=== PATIENT | female | born 1965 | race Caucasian/White ===

== ENCOUNTER 2019-07-05 05:28 | Observation (INO) ==
[2019-07-05 05:52] LABS: Bilirubin,Urine Negative (Negative); Blood,Urine Negative (Negative); Clarity,Urine Clear (Clear); Color,Urine Yellow (Yellow); Glucose,Urine (UA) Normal (Normal); Ketones,Urine Negative (Negative); Leukocyte Esterase,Urine Negative (Negative); Nitrite,Urine Negative (Negative); Protein,Urine Negative (Neg-Trace); Specific Gravity,Urine 1.019 (1.010-1.025); Urobilinogen,Urine Normal (Normal)
[2019-07-05] MEDS ORDERED: Ondansetron 4 MG/2 ML VIAL IVP ONE (06:26)
[2019-07-05] MEDS ORDERED: 0.9 % Sodium Chloride 1,000 ML IVC ONE (06:26)
[2019-07-05] MEDS ORDERED: Hyoscyamine SL 0.125 MG TAB.SUBL SL STA (06:26)
[2019-07-05 07:02] LABS: Basophils # 0.1 K/mcL (0.0-0.2); Basophils % 0.7 %; Eosinophils # 0.1 K/mcL (0.0-0.6); Eosinophils % 0.7 %; Hematocrit 42.2 % (35.3-44.9); Hemoglobin 14.1 g/dL (11.5-15.4); Immature Granulocytes % 0.3 % (0-4); Lymphocytes # 1.7 K/mcL (0.6-4.6); Lymphocytes % 17.5 %; Mean Corpuscular HGB Conc 33.4 g/dL (31.6-35.5); Mean Corpuscular Hemoglobin 29.7 pg (28.0-33.3); Mean Platelet Volume 11.9 fL (9.4-12.4); Monocytes # 0.6 K/mcL (0.0-1.3); Monocytes % 5.6 %; Neutrophils # 7.5 K/mcL (1.6-8.9); Platelet Count 199 K/mcL (140-400); Red Blood Count 4.74 M/mcL (3.82-4.97); Red Cell Distribution Width 12.6 % (11.5-14.5); Segmented Neutrophils % 75.2 %
[2019-07-05 07:22] LABS: Alanine Aminotransferase 58 Units/L (7-52); Albumin 4.4 g/dL (3.5-5.7); Albumin/Globulin Ratio 1.5 (1.1-2.2); Alkaline Phosphatase 74 Units/L (34-104); Aspartate Amino Transferase 38 Units/L (13-39); BUN/Creatinine Ratio 24 (6-26); Bilirubin,Direct 0.2 mg/dL (0.0-0.2); Bilirubin,Indirect 0.6 mg/dL (0.0-1.2); Bilirubin,Total 0.8 mg/dL (0.3-1.0); Blood Urea Nitrogen 17 mg/dL (6-20); Calcium 9.3 mg/dL (8.6-10.3); Carbon Dioxide 28 mEq/L (23-29); Chloride 105 mEq/L (98-107); Globulin 2.9 g/dL (2.4-3.5); Glucose 160 mg/dL (70-105); Lipase 39 Units/L (11-82); Osmolality,Calculated 285 (280-300); Sodium 135 mEq/L (136-145); Total Protein 7.3 g/dL (6.4-8.9); eGFR For African Americans > 60 (> 60); eGFR For Non-African Americans > 60 (> 60)
[2019-07-05] MEDS ORDERED: Piperacillin/Tazobactam 3.375 GM in 0.9 % Sodium Chloride Mini Bag 100 ML IVPB ONE ×2 (08:11→16:51)
[2019-07-05] MEDS ORDERED: 0.9 % Sodium Chloride 1,000 ML IVC SCH (08:15)
[2019-07-05] MEDS ORDERED: Bupivacaine/EPI 1:200k 0.5%PF 30 ML VIAL ONE (15:55)
[2019-07-05] MEDS ORDERED: *HR* FentaNYL (PF) 100 MCG/2 ML VIAL ONE (17:00)
[2019-07-05] MEDS ORDERED: *HR* HYDROMORPHONE 2 MG/ML VIAL ONE (17:00)
[2019-07-05] MEDS: *HR* HYDROmorphone (PF) 1 MG/ML SYRINGE IVP PRN ×3 (18:34→19:00)
[2019-07-05] MEDS ORDERED: Acetaminophen IV 1,000 MG/100 ML INFUS..BTL IVPB ONE (18:36)
[2019-07-05] MEDS ORDERED: *HR* Midazolam HCl 2 MG/2 ML VIAL IVP PRN (18:36)
[2019-07-05] MEDS ORDERED: *HR* Meperidine 25 MG/ML SYRINGE IVP PRN (18:36)
[2019-07-05] MEDS ORDERED: *HR* Promethazine 25 MG/ML VIAL IVP PRN (18:36)
[2019-07-05] MEDS ORDERED: *HR* HYDROmorphone 2 MG/ML SYRINGE ONE (18:36)
[2019-07-05] MEDS ORDERED: Ringers Solution, Lactated 1,000 ML IVC SCH (18:45)
[2019-07-05] MEDS ORDERED: Acetaminophen IV 1,000 MG/100 ML INFUS..BTL ONE (18:45)
[2019-07-05] MEDS ORDERED: *HR* OxyCODONE/APAP 5/325 TABLET PO PRN (19:28)
[2019-07-05] MEDS: Ondansetron 4 MG/2 ML VIAL IVP PRN (19:43)
[2019-07-05] MEDS: amLODIPine 5 MG TABLET PO SCH (20:22)
[2019-07-05] MEDS: Ketorolac 15 MG/ML VIAL IVP SCH (23:07)
[2019-07-05] MEDS: Acetaminophen IV 1,000 MG/100 ML INFUS..BTL IVPB SCH (23:07)
[2019-07-05] MEDS: Piperacillin/Tazobactam 3.375 GM in 0.9 % Sodium Chloride Mini Bag 100 ML IVPB SCH (23:08)
[2019-07-06] MEDS: Ondansetron 4 MG/2 ML VIAL IVP PRN (03:04)
[2019-07-06] MEDS ORDERED: Metoclopramide 10 MG/2 ML VIAL IVP SCH (04:12)
[2019-07-06] MEDS ORDERED: traMADol 50 MG TABLET PO PRN (04:13)
[2019-07-06] MEDS: Metoclopramide 10 MG/2 ML VIAL IVP SCH ×4 (04:30→21:54)
[2019-07-06] MEDS: Ketorolac 15 MG/ML VIAL IVP SCH ×4 (05:19→23:58)
[2019-07-06] MEDS: Acetaminophen IV 1,000 MG/100 ML INFUS..BTL IVPB SCH (05:20)
[2019-07-06] MEDS: Piperacillin/Tazobactam 3.375 GM in 0.9 % Sodium Chloride Mini Bag 100 ML IVPB SCH ×2 (09:05→15:55)
[2019-07-06] MEDS ORDERED: Scopolamine Patch 1.5 MG PATCH.TD72 TD ONE (10:01)
[2019-07-06] MEDS ORDERED: Ondansetron ODT 4 MG TAB.RAPDIS SL PRN (10:02)
[2019-07-06] MEDS ORDERED: *HR* OxyCODONE/APAP 5/325 TABLET PO PRN (10:02)
[2019-07-06] MEDS: Ondansetron 4 MG/2 ML VIAL IVP SCH ×4 (11:09→23:58)
[2019-07-06] MEDS: *HR* Heparin 5,000 UNIT/ML VIAL SQ SCH (19:56)
[2019-07-06] MEDS: amLODIPine 5 MG TABLET PO SCH (21:54)
[2019-07-07] MEDS: Ketorolac 15 MG/ML VIAL IVP SCH (05:03)
[2019-07-07] MEDS: *HR* Heparin 5,000 UNIT/ML VIAL SQ SCH (05:03)
[2019-07-07] MEDS: Ondansetron 4 MG/2 ML VIAL IVP SCH ×2 (05:04→08:58)
[2019-07-07] MEDS: Metoclopramide 10 MG/2 ML VIAL IVP SCH (05:04)
[2019-07-07 06:36] VITALS: BP 137/80
== END 2019-07-07 09:31 | disposition home or self-care (01) ==
LOC: EMEROOARM 05:28 → 3ANU 05:28
PROVIDERS: ADMIT Surgery; ATTEND Surgery